=== PATIENT | female | born 1985 | race Caucasian/White ===

== ENCOUNTER 2017-07-07 21:15 | Observation (INO) | payer OTHER ==
[~2017-07-07] VITALS: Ht 158 cm; Wt 78.5 kg
[2017-07-08 00:10] VITALS: BP 115/66
[2017-07-08] MEDS ORDERED: PREN1TAB80 PO (00:15)
== END 2017-07-08 00:35 | disposition home or self-care (01) ==
LOC: 4S 21:15
PROVIDERS: ADMIT Obstetrics & Gynecology; ATTEND Obstetrics & Gynecology
DX: O36.8130 Decreased fetal movements, third trimester, not applicable or unspecified (principal); O62.9 Abnormality of forces of labor, unspecified; Z3A.36 36 weeks gestation of pregnancy
CPT/HCPCS: 59025; G0378 ×2

== ENCOUNTER 2017-07-24 10:10 | Inpatient (IN) | payer OTHER ==
[~2017-07-24] VITALS: Ht 157.5 cm; Wt 77.6 kg
[~2017-07-24 10:10] MED LIST: PREN1TAB80 PO
[2017-07-24] MEDS ORDERED: RINGERS SOLUTION,LACTATED 1,000 ML IV ONE (10:38)
[2017-07-24] MEDS ORDERED: CITRIC ACID/SODIUM CITRATE 30 ML SOLUTION UDCUP PO ONE (10:45)
[2017-07-24] MEDS ORDERED: METOCLOPRAMIDE HCL 5 MG/ML 2 ML VIAL IVP ONE (10:45)
[2017-07-24 10:57] VITALS: BP 118/72
[2017-07-24] MEDS ORDERED: MORPHINE SULFATE/PF 0.5 MG/ML 10 ML AMP ONE (11:09)
[2017-07-24] MEDS ORDERED: FentaNYL CITRATE-PF 100 MCG/2 ML VIAL ONE (11:10)
[2017-07-24] MEDS ORDERED: GUM MASTIC/STORAX/MSAL/ALCOHOL LIQUID 0.67 ML VIAL TP ONE (11:10)
[2017-07-24] MEDS ORDERED: MIDAZOLAM HCL 2 MG/2 ML VIAL ONE (11:10)
[2017-07-24 11:28] LABS: BASOPHILS % (AUTO) 0.1 % (0.0-2.0); EOSINOPHILS % (AUTO) 0.5 % (1.0-6.0); HEMATOCRIT 35.2 % (36-46); HEMOGLOBIN 12.2 g/dL (12.0-16.0); LYMPHOCYTES # (AUTO) 1.8 K/uL (1.0-4.8); LYMPHOCYTES % (AUTO) 25.8 % (22.0-44.0); MEAN CORPUSCULAR HEMOGLOBIN 32.3 pg (26.0-34.0); MEAN CORPUSCULAR HGB CONC 34.6 G/dL (31.0-37.0); MEAN CORPUSCULAR VOLUME 93 fL (80-100); MONOCYTES # (AUTO) 0.5 K/uL (0.1-1.0); NEUTROPHILS # (AUTO) 4.7 K/uL (1.8-7.7); NEUTROPHILS % (AUTO) 66.6 % (40.0-70.0); RED BLOOD CELL COUNT(AUTO) 3.76 MIL/uL (4.00-5.20); RED CELL DISTRIBUTION WIDTH 13.5 % (11.5-14.5)
[2017-07-24] MEDS ORDERED: OXYGEN THERAPY IH SCH ×2 (14:00→20:00)
[2017-07-24] MEDS ORDERED: FentaNYL CITRATE-PF 100 MCG/2 ML VIAL IVP PRN ×2 (14:00→14:15)
[2017-07-24] MEDS ORDERED: MORPHINE SULFATE 2 MG/ML SYRINGE IVP PRN (14:00)
[2017-07-24] MEDS ORDERED: DiphenhydrAMINE HCL 50 MG/ML VIAL IVP PRN ×2 (14:00→14:15)
[2017-07-24] MEDS ORDERED: ONDANSETRON HCL 4 MG/2 ML VIAL IVP PRN ×2 (14:00→14:15)
[2017-07-24] MEDS ORDERED: MORPHINE SULFATE 4 MG/ML SYRINGE IVP PRN (14:15)
[2017-07-24] MEDS: NALBUPHINE HCL 10 MG/ML VIAL IVP SCH ×2 (18:21→23:46)
[2017-07-24] MEDS: KETOROLAC TROMETHAMINE 30 MG/ML VIAL IVP SCH (20:37)
[2017-07-24] MEDS ORDERED: OXYTOCIN 30 UNITS/LACT RINGERS 500 ML IV ONE (21:16)
[2017-07-24] MEDS ORDERED: RINGERS SOLUTION,LACTATED 1,000 ML IV SCH (21:16)
[2017-07-24] MEDS ORDERED: OxyCODONE HCL/ACETAMINOPHEN 5-325 MG TABLET PO PRN (21:30)
[2017-07-24] MEDS ORDERED: LANOLIN 7 GM OINTMENT TP PRN (21:30)
[2017-07-24] MEDS ORDERED: ONDANSETRON HCL 4 MG/2 ML VIAL IVP ONE (23:27)
[2017-07-24] MEDS ORDERED: OXYTOCIN 10 UNITS/ML VIAL IM ONE (23:27)
[2017-07-24] MEDS ORDERED: KETOROLAC TROMETHAMINE 60 MG/2 ML VIAL IM ONE (23:27)
[2017-07-24] MEDS ORDERED: DEXAMETHASONE SOD PHOS 4 MG/ML VIAL IVP ONE (23:27)
[2017-07-24] MEDS ORDERED: EPHEDrine SULFATE 50 MG/ML VIAL IM ONE (23:27)
[2017-07-25] MEDS: KETOROLAC TROMETHAMINE 30 MG/ML VIAL IVP SCH (02:04)
[2017-07-25] MEDS: NALBUPHINE HCL 10 MG/ML VIAL IVP SCH (05:22)
[2017-07-25 05:49] LABS: BASOPHILS # (AUTO) 0.03 K/uL (0.00-0.20); BASOPHILS % (AUTO) 0.3 % (0.0-2.0); EOSINOPHILS # (AUTO) 0.01 K/uL (0.00-0.70); EOSINOPHILS % (AUTO) 0.06 % (1.0-6.0); HEMATOCRIT 29.6 % (36-46); HEMOGLOBIN 10.2 g/dL (12.0-16.0); LYMPHOCYTES # (AUTO) 1.9 K/uL (1.0-4.8); LYMPHOCYTES % (AUTO) 16.9 % (22.0-44.0); MEAN CORPUSCULAR HEMOGLOBIN 32.3 pg (26.0-34.0); MEAN CORPUSCULAR HGB CONC 34.3 G/dL (31.0-37.0); MEAN CORPUSCULAR VOLUME 94 fL (80-100); MONOCYTES # (AUTO) 0.7 K/uL (0.1-1.0); MONOCYTES % (AUTO) 5.9 % (2.0-9.0); NEUTROPHILS # (AUTO) 8.7 K/uL (1.8-7.7); NEUTROPHILS % (AUTO) 76.9 % (40.0-70.0); RED BLOOD CELL COUNT(AUTO) 3.15 MIL/uL (4.00-5.20); RED CELL DISTRIBUTION WIDTH 13.9 % (11.5-14.5); WHITE BLOOD COUNT (AUTO) 11.3 K/uL (4.5-11.0)
[2017-07-25] MEDS: MAGNESIUM HYDROXIDE SUSPENSION 30 ML UDCUP PO SCH ×2 (08:18→21:00)
[2017-07-25] MEDS: OxyCODONE HCL/ACETAMINOPHEN 5-325 MG TABLET PO PRN ×3 (08:18→16:34)
[2017-07-25] MEDS: IBUPROFEN 800 MG TABLET PO SCH ×3 (10:44→22:18)
[2017-07-25] MEDS ORDERED: IBUPROFEN 800 MG TABLET PO PRN (21:30)
[2017-07-26] MEDS: IBUPROFEN 800 MG TABLET PO SCH ×2 (03:49→10:12)
[2017-07-26] MEDS ORDERED: IBUP-2071 PO (08:50)
[2017-07-26] MEDS ORDERED: DSS100 PO (08:50)
[2017-07-26] MEDS ORDERED: PERCT PO (08:51)
[2017-07-26] MEDS: MAGNESIUM HYDROXIDE SUSPENSION 30 ML UDCUP PO SCH (10:12)
== END 2017-07-26 11:45 | disposition home or self-care (01) | DRG 766 ==
LOC: 4S 10:10 → OBSVTOIN 10:10
PROVIDERS: ADMIT Obstetrics & Gynecology; ATTEND Obstetrics & Gynecology
PROC: 10D00Z1 Extraction of Products of Conception, Low, Open Approach (ICD-10-PCS; principal; 2017-07-24)
DX: O32.1XX0 Maternal care for breech presentation, not applicable or unspecified (principal); O69.81X0 Labor and delivery complicated by cord around neck, without compression, not applicable or unspecified; Z37.0 Single live birth; Z3A.39 39 weeks gestation of pregnancy
CPT/HCPCS: 86850; 86900; 86901; 87081; J0690; J1100; J1885; J2250; J2274; J2300; J2405; J2590; J2765; J3010; J3490; J7120

== ENCOUNTER 2019-05-19 14:45 | Observation (INO) | payer OTHER ==
[~2019-05-19] VITALS: Ht 157.5 cm; Wt 78.5 kg
[~2019-05-19 14:45] MED LIST changes: +DSS100 PO; +IBUP-2071 PO; +PERCT PO
[2019-05-19] MEDS ORDERED: RINGERS SOLUTION,LACTATED 1,000 ML IV SCH ×2 (15:00)
[2019-05-19] MEDS ORDERED: DEXTROSE 5%-LACTATED RINGERS 1,000 ML IV ONE (17:15)
[2019-05-19] MEDS ORDERED: NIFEdipine 10 MG CAPSULE PO ONE (17:15)
== END 2019-05-19 19:38 | disposition home or self-care (01) ==
LOC: 4S 14:45
PROVIDERS: ADMIT Obstetrics & Gynecology; ATTEND Obstetrics & Gynecology
DX: O62.9 Abnormality of forces of labor, unspecified (principal); Z3A.37 37 weeks gestation of pregnancy
CPT/HCPCS: 81002; G0378; J7120; X7700

== ENCOUNTER 2019-05-26 12:45 | Inpatient (IN) | payer OTHER ==
[~2019-05-26] VITALS: Ht 157.5 cm; Wt 79.4 kg
[~2019-05-26 12:45] MED LIST changes: +0.9% SODIUM CHLORIDE 10 ML VIAL IVP ONE; +EPHEDrine SULFATE 50 MG/ML VIAL IM ONE; +ONDANSETRON HCL 4 MG/2 ML VIAL IVP ONE; +OXYTOCIN 10 UNITS/ML VIAL IM ONE
[2019-05-26] MEDS ORDERED: PREN1TAB80 PO (12:58)
[2019-05-26 13:33] VITALS: BP 126/68
[2019-05-26] MEDS ORDERED: RINGERS SOLUTION,LACTATED 1,000 ML IV ONE (14:04)
[2019-05-26] MEDS ORDERED: METOCLOPRAMIDE HCL 5 MG/ML 2 ML VIAL IVP ONE (14:15)
[2019-05-26] MEDS ORDERED: CITRIC ACID/SODIUM CITRATE 30 ML SOLUTION UDCUP PO ONE (14:15)
[2019-05-26 16:01] LABS: BASOPHILS % (AUTO) 0.2 % (0.0-2.0); EOSINOPHILS % (AUTO) 0.7 % (1.0-6.0); HEMATOCRIT 35.6 % (36-46); HEMOGLOBIN 11.9 g/dL (12.0-16.0); LYMPHOCYTES % (AUTO) 28.9 % (22.0-44.0); MEAN CORPUSCULAR HEMOGLOBIN 30.2 pg (26.0-34.0); MEAN CORPUSCULAR HGB CONC 33.4 G/dL (31.0-37.0); MEAN CORPUSCULAR VOLUME 91 fL (80-100); MONOCYTES # (AUTO) 0.5 K/uL (0.1-1.0); MONOCYTES % (AUTO) 7.5 % (2.0-9.0); NEUTROPHILS # (AUTO) 4.4 K/uL (1.8-7.7); NEUTROPHILS % (AUTO) 62.7 % (40.0-70.0); PLATELET COUNT (AUTO) 266 K/uL (150-450); RED BLOOD CELL COUNT(AUTO) 3.93 MIL/uL (4.00-5.20); RED CELL DISTRIBUTION WIDTH 14.3 % (11.5-14.5)
[2019-05-26] MEDS ORDERED: FentaNYL CITRATE-PF 100 MCG/2 ML VIAL ONE (16:35)
[2019-05-26] MEDS ORDERED: MORPHINE SULFATE/PF 0.5 MG/ML 10 ML AMP ONE (16:36)
[2019-05-26] MEDS ORDERED: ACETAMINOPHEN 1000 MG/ISO-OSM 100 ML IV ONE (16:36)
[2019-05-26] MEDS ORDERED: BUPIVACAINE HCL/DEX-WATER/PF 0.75% 2 ML AMP ONE (16:36)
[2019-05-26] MEDS ORDERED: DEXAMETHASONE SOD PHOS 4 MG/ML VIAL IVP PRN (17:30)
[2019-05-26] MEDS ORDERED: NALBUPHINE HCL 10 MG/ML VIAL IVP PRN ×3 (17:30→17:45)
[2019-05-26] MEDS ORDERED: DiphenhydrAMINE HCL 50 MG/ML VIAL IVP PRN ×2 (17:30→17:45)
[2019-05-26] MEDS ORDERED: ONDANSETRON HCL 4 MG/2 ML VIAL IVP PRN ×2 (17:30→17:45)
[2019-05-26] MEDS ORDERED: NALOXONE HCL 0.4 MG/ML VIAL IVP PRN (17:45)
[2019-05-26] MEDS ORDERED: MORPHINE SULFATE 10 MG/ML SYRINGE IVP PRN (17:45)
[2019-05-26] MEDS ORDERED: FentaNYL CITRATE-PF 100 MCG/2 ML VIAL IVP PRN (17:45)
[2019-05-26] MEDS ORDERED: OXYTOCIN 30 UNITS/LACT RINGERS 500 ML IV ONE (18:16)
[2019-05-26] MEDS ORDERED: LANOLIN 7 GM OINTMENT TP PRN (18:30)
[2019-05-26] MEDS ORDERED: OxyCODONE HCL/ACETAMINOPHEN 5-325 MG TABLET PO PRN (18:30)
[2019-05-26] MEDS ORDERED: OXYGEN THERAPY IH SCH ×3 (20:00)
[2019-05-26] MEDS: MAGNESIUM HYDROXIDE SUSPENSION 30 ML UDCUP PO SCH (21:00)
[2019-05-26] MEDS: RINGERS SOLUTION,LACTATED 1,000 ML IV SCH (23:28)
[2019-05-27] MEDS ORDERED: ACETAMINOPHEN 1000 MG/ISO-OSM 100 ML IV SCH (01:30)
[2019-05-27 05:59] LABS: BASOPHILS % (AUTO) 0.1 % (0.0-2.0); EOSINOPHILS % (AUTO) 0.3 % (1.0-6.0); HEMATOCRIT 31.4 % (36-46); HEMOGLOBIN 10.5 g/dL (12.0-16.0); LYMPHOCYTES % (AUTO) 20.4 % (22.0-44.0); MEAN CORPUSCULAR HEMOGLOBIN 30.3 pg (26.0-34.0); MEAN CORPUSCULAR HGB CONC 33.4 G/dL (31.0-37.0); MEAN CORPUSCULAR VOLUME 91 fL (80-100); MONOCYTES # (AUTO) 0.6 K/uL (0.1-1.0); MONOCYTES % (AUTO) 6.4 % (2.0-9.0); NEUTROPHILS # (AUTO) 7.3 K/uL (1.8-7.7); NEUTROPHILS % (AUTO) 72.8 % (40.0-70.0); PLATELET COUNT (AUTO)-OB 220 K/uL (150-450); RED BLOOD CELL COUNT(AUTO) 3.46 MIL/uL (4.00-5.20); RED CELL DISTRIBUTION WIDTH 14.2 % (11.5-14.5)
[2019-05-27] MEDS: RINGERS SOLUTION,LACTATED 1,000 ML IV SCH (06:17)
[2019-05-27] MEDS ORDERED: ACETAMINOPHEN 500 MG TABLET PO ONE (09:45)
[2019-05-27] MEDS: OxyCODONE HCL/ACETAMINOPHEN 5-325 MG TABLET PO PRN ×2 (13:55→21:18)
[2019-05-27] MEDS: IBUPROFEN 800 MG TABLET PO PRN ×2 (13:55→21:18)
[2019-05-27] MEDS ORDERED: IBUPROFEN 800 MG TABLET PO PRN (18:30)
[2019-05-27] MEDS: MAGNESIUM HYDROXIDE SUSPENSION 30 ML UDCUP PO SCH (21:19)
[2019-05-28] MEDS: IBUPROFEN 800 MG TABLET PO PRN ×3 (04:48→16:59)
[2019-05-28] MEDS: OxyCODONE HCL/ACETAMINOPHEN 5-325 MG TABLET PO PRN ×3 (04:49→15:45)
[2019-05-28] MEDS: MAGNESIUM HYDROXIDE SUSPENSION 30 ML UDCUP PO SCH (08:00)
[2019-05-28] MEDS ORDERED: ACET-2247 PO (11:12)
== END 2019-05-28 17:25 | disposition home or self-care (01) | DRG 788 ==
LOC: 4S 12:45 → OBSVTOIN 12:45 → INTOOBSV 12:57 → 4S 12:57 → UNDOADMOB 12:57 → 4S 20:43
PROVIDERS: ADMIT Obstetrics & Gynecology; ATTEND Obstetrics & Gynecology
PROC: 10D00Z1 Extraction of Products of Conception, Low, Open Approach (ICD-10-PCS; principal; 2019-05-26)
DX: O34.211 Maternal care for low transverse scar from previous cesarean delivery (principal); Z3A.38 38 weeks gestation of pregnancy; Z37.0 Single live birth
CPT/HCPCS: 86850; 86900; 86901; 87081; J0131; J0690; J2274; J2405; J2590; J2765; J3010; J3490; J7120